=== PATIENT | male | born 1995 | race Two or more races ===

== ENCOUNTER 2020-08-01 05:06 | Emergency (ER) | payer OTHER ==
[~2020-08-01] VITALS: Ht 172.7 cm; Wt 82.0 kg
[2020-08-01] MEDS ORDERED: HYDROCODONE/ACETAMINOPHEN 5/325MG TABLET PO ONE (05:45)
[2020-08-01] MEDS ORDERED: TETANUS, DIPHTHERIA, PERTUSSIS VAC/PF 0.5ML (>7YR OLD) IM ONE (07:00)
[2020-08-01] MEDS ORDERED: ONDANSETRON 4MG ODT PO ONE (07:00)
[2020-08-01] MEDS ORDERED: LIDOCAINE HCL/PF 1% 10 MG/ML 5ML VIAL IJ ONE (07:00)
[2020-08-01] MEDS ORDERED: BACITRACIN ZINC OINT UDPKT TOP ONE (07:00)
[2020-08-01] MEDS ORDERED: HYDR-4346 MT (09:13)
[2020-08-01] MEDS ORDERED: IBUP-2030 MT (09:13)
[2020-08-01] MEDS ORDERED: CEPH500T MT (09:13)
[2020-08-01 10:17] VITALS: BP 130/77
== END 2020-08-01 10:19 | disposition home or self-care (01) ==
LOC: ER 05:06
DX: S92.352A Displaced fracture of fifth metatarsal bone, left foot, initial encounter for closed fracture (principal); V98.8XXA Other specified transport accidents, initial encounter; Y93.89 Activity, other specified; Y92.89 Other specified places as the place of occurrence of the external cause; Y99.8 Other external cause status
CPT/HCPCS: 12002; 73630; 90471; 90715; 99284; J3490; Q0162